=== PATIENT | male | born 1955 | race Caucasian/White ===

== ENCOUNTER → 2017-01-12 | Outpatient (CLI) | payer MEDICARE ==
[~2017-01-12] MED LIST: AMLO5TAB PO; ASPIRIN325 M1 PO; AZITHROMYCIN250 MG PO; DITROPAN 5MG TAB5 MG PO; HYTRIN2 MG PO; LISINOPRIL 5MG T5 MG NG; LISINOPRIL10 MG PO; MACRODANTIN100 MG PO; METOPROLOL SUCC50 M1 PO; METOPROLOL25 MG PO; MULTI VITAMINS1 TA1 PO; PEPCID AC20 M1 PO; PROAIR HFA0.09 MG/AC IH; PYRIDIUM 200MG200 MG PO; SIMVASTATIN10 MG PO; SIMVASTATIN40 MG PO; TERAZOSIN5 MG PO
[2017-01-12 18:33] LABS: BUN 18 mg/dL (7-18)
[2017-01-12 18:34] LABS: GFR (ESTIMATED) 56 ML/MIN (>60)
== END ==
LOC: LAB 15:21
PROVIDERS: Internal Medicine Adolescent Medicine
DX: M15.0 Primary generalized (osteo)arthritis (principal)